=== PATIENT | female | born 1960 | race Two or more races ===

== ENCOUNTER 2018-08-31 10:10 | Outpatient (CLI) | payer OTHER | END 2018-08-31 23:59 | disposition home or self-care (01) | LOC: WOU 10:10 | PROVIDERS: ATTEND Surgery | DX: T81.31XA Disruption of external operation (surgical) wound, not elsewhere classified, initial encounter (principal); L76.82 Other postprocedural complications of skin and subcutaneous tissue; Y83.4 Other reconstructive surgery as the cause of abnormal reaction of the patient, or of later complication, without mention of misadventure at the time of the procedure; Y92.89 Other specified places as the place of occurrence of the external cause; L65.8 Other specified nonscarring hair loss; S01.00XA Unspecified open wound of scalp, initial encounter; X58.XXXA Exposure to other specified factors, initial encounter; Z87.891 Personal history of nicotine dependence | CPT/HCPCS: 99204; A6402; G0463 ==

== ENCOUNTER 2018-11-15 09:50 | Outpatient (CLI) | payer OTHER | END 2018-11-15 23:59 | disposition home or self-care (01) | LOC: WOU 09:50 | PROVIDERS: ATTEND Specialist | DX: T81.31XA Disruption of external operation (surgical) wound, not elsewhere classified, initial encounter (principal); L76.82 Other postprocedural complications of skin and subcutaneous tissue; T86.821 Skin graft (allograft) (autograft) failure; S01.00XD Unspecified open wound of scalp, subsequent encounter; X58.XXXD Exposure to other specified factors, subsequent encounter; Z87.891 Personal history of nicotine dependence | CPT/HCPCS: G0463 ==

== ENCOUNTER 2019-03-21 10:00 | Outpatient (CLI) | payer OTHER | END 2019-03-21 23:59 | disposition home or self-care (01) | LOC: WOU 10:00 | PROVIDERS: ATTEND Specialist | DX: T86.828 Other complications of skin graft (allograft) (autograft) (principal); L90.5 Scar conditions and fibrosis of skin; J06.9 Acute upper respiratory infection, unspecified | CPT/HCPCS: G0463 ==